=== PATIENT | female | born 1955 | race Caucasian/White ===

== ENCOUNTER 2021-07-18 13:02 | Emergency (ER) | payer OTHER, MEDICARE ==
[~2021-07-18] VITALS: Ht 167.6 cm; Wt 80.1 kg
[2021-07-18] MEDS ORDERED: ONDANSETRON PF 4 MG/2 ML VIAL. IVP ONE (13:30)
[2021-07-18] MEDS ORDERED: IV NORMAL SALINE 1,000ML 1,000 ML IV ONE (13:30)
--- NOTE | 2021-07-18 13:52 | RAD ---
EXAMINATION: CT abdomen and pelvis without IV contrast. INDICATION:66 years, Female, right lower quadrant abdominal pain. TECHNIQUE: Axial CT images of the abdomen and pelvis were obtained. Coronal and sagittal reformatted performed. COMPARISON: None. Exposure: One or more of the following individualized dose reduction techniques were utilized for thi s examination: 1. Automated exposure control 2. Adjustment of the mA and/or kV according to patient size 3. Use of iterative reconstruction technique. FINDINGS: LOWER CHEST: Unremarkable. ABDOMEN/PELVIS: Within the limitation of noncontrast exam, Liver, spleen and pancreas are unremarkable. Hyperdense content layering in the gallbladder, may repr esent concentrated bile versus biliary sludge. No biliary ductal dilation. There is a 2.3 cm right ad renal nodule with Hounsfield unit -5, compatible with lipid rich adrenal adenoma. Left adrenal gland is unremarkable. No hydronephrosis or nephrolithiasis in either kidney. Small simple appearing left r enal parapelvic cysts. Nonspecific bilateral perinephric fat stranding. Colonic diverticulosis. Focal sigmoidal wall thickening with perisigmoid fat stranding. Foci of gas s een in the sigmoid mesentery (series 2 image 89). No abscess. Prominent loops of small bowel in the c entral abdomen, likely reactive. Normal appendix. No lymphadenopathy. Mild aortoiliac atherosclerotic calcifications without dilatation. No ascites. Decompressed urinary bladder which limits evaluation. Coarse calcifications in the uterus, likely calcified fibroid. MUSCULOSKELETAL STRUCTURES: No acute osseous process. Multilevel degenerative changes in the spine, worst at L5-S1. IMPRESSION: 1. Acute perforated sigmoid diverticulitis. 2. Lipid rich 2.3 cm right adrenal adenoma. 3. Other chronic/incidental findings, as above. Electronically signed by: Gold Onofre MD (07/18/2021 1:49 PM) [id number]
--- NOTE | 2021-07-18 14:20 | PHYS DOC ---
Past History Past Surgical History: Tubal ligation Alcohol Use: Occasionally General Adult EDM: Chief Complaint: ABDOMINAL PAIN HPI: HPI: 66-year-old female presents with right lower quadrant abdominal pain. The patient just retired and came to spend a week with her granddaughter. The patient does not live in this area. She started to have abdominal pain and it is much worse in the right lower quadrant at this time. She has had a kidney stone in the past. Patient's only abdominal surgery is a tubal ligation decades ago. She denies dysuria or increased urinary frequency. Denies fever or chills. Review of Systems: Review of Systems: Constitutional: Denies fever or chills Eyes: Denies change in visual acuity HENT: Denies nasal congestion or sore throat Respiratory: Denies cough or shortness of breath Cardiovascular: Denies chest pain or edema GI: Right lower quadrant abdominal pain, nausea. Denies vomiting, bloody stools or diarrhea : Denies dysuria Musculoskeletal: Denies back pain or joint pain Integument: Denies rash Neurologic: Denies headache, focal weakness or sensory changes Endocrine: Denies polyuria or polydipsia Lymphatic: Denies swollen glands Psychiatric: Denies depression or anxiety Current Medications: Current Meds: Current Medications Medications (Trade) Dose Ordered Sig/Vijay Start Time Stop Time Status Last Admin Dose Admin Ondansetron HCl (Zofran) 4 mg 1X ONCE 07/18/21 13:30 07/18/21 13:31 DC 07/18/21 13:51 4 MG Sodium Chloride 1,000 ml @ 1,000 mls/hr 1X ONCE 07/18/21 13:30 07/18/21 14:29 07/18/21 13:50 1,000 MLS/HR Allergies: Allergies: Allergies Coded Allergies Type Severity Reaction Last Updated Verified No Known Drug Allergies 07/18/21 No Physical Exam: PE: Constitutional: Well developed, well nourished, no acute distress, non-toxic appearance. [] HENT: Normocephalic, atraumatic, bilateral external ears normal, oropharynx moist, no oral exudates, nose normal. [] Eyes: PERRLA, EOMI, conjunctiva normal, no discharge. [] Neck: Normal range of motion, no tenderness, supple, no stridor. [] Cardiovascular: Heart rate regular rhythm, no murmur [] Lungs & Thorax: Bilateral breath sounds clear to auscultation [] Abdomen: Bowel sounds normal, soft, right lower quadrant tenderness with involuntary guarding, no masses, no pulsatile masses. [] Skin: Warm, dry, no erythema, no rash. [] Back: No tenderness, no CVA tenderness. [] Extremities: No tenderness, no cyanosis, no clubbing, ROM intact, no edema. [] Neurologic: Alert and oriented X 3, normal motor function, normal sensory function, no focal deficits noted. [] Psychologic: Affect normal, judgement normal, mood normal. [] Current Patient Data: Vital Signs: Vital Signs Date Time Temp Pulse Resp B/P (MAP) Pulse Ox O2 Delivery O2 Flow Rate FiO2 07/18/21 13:53 84 18 137/56 (83) 94 Room Air 07/18/21 13:19 99.5 EKG: EKG: [] Radiology/Procedures: Radiology/Procedures: [] Impressions: EXAMINATION: CT abdomen and pelvis without IV contrast. INDICATION:66 years, Female, right lower quadrant abdominal pain. TECHNIQUE: Axial CT images of the abdomen and pelvis were obtained. Coronal and sagittal reformatted performed. COMPARISON: None. Exposure: One or more of the following individualized dose reduction techniques were utilized for this examination: 1. Automated exposure control 2. Adjustment of the mA and/or kV according to patient size 3. Use of iterative reconstruction technique. FINDINGS: LOWER CHEST: Unremarkable. ABDOMEN/PELVIS: Within the limitation of noncontrast exam, Liver, spleen and pancreas are unremarkable. Hyperdense content layering in the gallbladder, may represent concentrated bile versus biliary sludge. No biliary ductal dilation. There is a 2.3 cm right adrenal nodule with Hounsfield unit -5, compatible with lipid rich adrenal adenoma. Left adrenal gland is unremarkable. No hydronephrosis or nephrolithiasis in either kidney. Small simple appearing left renal parapelvic cysts. Nonspecific bilateral perinephric fat stranding. Colonic diverticulosis. Focal sigmoidal wall thickening with perisigmoid fat stranding. Foci of gas seen in the sigmoid mesentery (series 2 image 89). No abscess. Prominent loops of small bowel in the central abdomen, likely reactive. Normal appendix. No lymphadenopathy. Mild aortoiliac atherosclerotic calcifications without dilatation. No ascites. Decompressed urinary bladder which limits evaluation. Coarse calcifications in the uterus, likely calcified fibroid. MUSCULOSKELETAL STRUCTURES: No acute osseous process. Multilevel degenerative changes in the spine, worst at L5-S1. IMPRESSION: 1. Acute perforated sigmoid diverticulitis. 2. Lipid rich 2.3 cm right adrenal adenoma. 3. Other chronic/incidental findings, as above. Electronically signed by: Gissell Onofre MD (07/18/2021 1:49 PM) [id number] DICTATED AND SIGNED BY: GISSELL ONOFRE MD DATE: 07/18/21 1345 CC: PALOMA CASTAÑEDA DO ~ Heart Score: C/O Chest Pain: N/A Risk Factors: Risk Factors: DM, Current or recent (<one month) smoker, HTN, HLP, family history of CAD, obesity. Risk Scores: Score 0 - 3: 2.5% MACE over next 6 weeks - Discharge Home Score 4 - 6: 20.3% MACE over next 6 weeks - Admit for Clinical Observation Score 7 - 10: 72.7% MACE over next 6 weeks - Early Invasive Strategies Course & Med Decision Making: Course & Med Decision Making Pertinent Labs and Imaging studies reviewed. (See chart for details) The patient CT of the abdomen pelvis shows acute perforated diverticulitis. I will treat her with Zosyn and consult general surgery. I spoke with Dr. Caal, general surgery at 1520. He has recommended the patient be transferred to [facility]. He agrees with n.p.o. status and Zosyn for treatment. I spoke with Dr. Breaux and he has accepted the patient for transfer and admission at 1523. The patient will go by ambulance. [] Neda Disclaimer: Neda Disclaimer: This electronic medical record was generated, in whole or in part, using a voice recognition dictation system. Departure Departure: Impression: Primary Impression: Diverticulitis Disposition: 02 SHORT TERM HOSPITAL Condition: STABLE PALOMA CASTAÑEDA DO July 18, 2021 14:20
[2021-07-18 14:24] LABS: BASO % 0 % (0-3); EOS % 0 % (0-3); HEMATOCRIT 39.2 % (36.0-47.0); LYMPH # 0.8 x10^3/uL (1.0-4.8); LYMPH % 6 % (24-48); MEAN CORPUSCULAR HEMOGLOBIN 30 pg (25-35); MEAN CORPUSCULAR HGB CONC 33 g/dL (31-37); MEAN CORPUSCULAR VOLUME 92 fL (79-100); MONO # 0.6 x10^3/uL (0.0-1.1); MONO % 4 % (0-9); NEUT # 12.8 x10^3uL (1.8-7.7); NEUT % 90 % (31-73); PLATELET COUNT 288 x10^3/uL (140-400); RED BLOOD COUNT 4.27 x10^6/uL (3.50-5.40); RED CELL DISTRIBUTION WIDTH 14.3 % (11.5-14.5); WHITE BLOOD COUNT 14.3 x10^3/uL (4.0-11.0)
[2021-07-18] MEDS ORDERED: MORPHINE SULFATE 4 MG/ML DISP.SYRIN. ONE (14:24)
[2021-07-18] MEDS ORDERED: MORPHINE SULFATE 4 MG/ML DISP.SYRIN. IV ONE ×2 (14:30→18:45)
[2021-07-18 15:01] LABS: CALCIUM 9.4 mg/dL (8.5-10.1); CREATININE 0.7 mg/dL (0.6-1.0)
[2021-07-18 15:09] LABS: ALBUMIN 3.7 g/dL (3.4-5.0); ALBUMIN/GLOBULIN RATIO 1.2 (1.0-1.7); TOTAL BILIRUBIN 0.6 mg/dL (0.2-1.0); TOTAL PROTEIN 6.9 g/dL (6.4-8.2)
[2021-07-18] MEDS ORDERED: PIPERACILLIN/TAZOBACTAM 3.375 GM in IV NORMAL SALINE 50ML 50 ML IV ONE (15:15)
[2021-07-18] MEDS ORDERED: PIPERACILLIN/TAZOBACTAM 3.375 GM VIAL IV ONE (15:15)
[2021-07-18] MEDS ORDERED: IV NORMAL SALINE 50ML 50 ML ONE (15:15)
[2021-07-18 22:10] VITALS: BP 132/50
== END 2021-07-18 22:13 | disposition short-term general hospital (02) ==
LOC: ER 13:02
DX: K57.32 Diverticulitis of large intestine without perforation or abscess without bleeding (principal); Z20.822 Contact with and (suspected) exposure to COVID-19; Z98.51 Tubal ligation status
CPT/HCPCS: 36415; 74176; 80053; 83690; 85025; 87426; 96361; 96365; 96366; 96375; 96376; 99285; C9803; J2270; J2405; J2543; J7030; U0003